=== PATIENT | female | born 1960 | race African-American/Black ===

== ENCOUNTER 2017-06-11 08:24 | Emergency (ER) | payer SELFPAY ==
[~2017-06-11] VITALS: Ht 165.1 cm; Wt 71.7 kg
[2017-06-11 08:31] VITALS: BP 111/63
--- NOTE | 2017-06-11 08:58 | NUR ---
PATIENT PRESENTS TO ED WITH LEFT SHOULDER DULL TYPE PAIN SELF RELIEVING AFTER DRINKING WATER PER PT; THIS AM EPIGASTRIC REGION DULL PAIN DENIES EMESIS/DIARRHEA/SOB/INJURY . PT STATES SHE ATE SPICY FOOD LAST NIGHT AND IS CONTRIBUTING PAIN WITH THE SPICY FOOD. . DENIES V/D; SKIN IS PINK/WARM/DRY; AAOX4 WITH EVEN AND STEADY GAIT; LUNGS CLEAR BL; HR EVEN AND REGULAR; PT DENIES ANY FEVER, CP, SOB, OR COUGH AT THIS TIME; PATIENT STATES PAIN OF 7/10 AT THIS TIME; VSS; PATIENT POSITIONED FOR COMFORT; HOB ELEVATED; BEDRAILS UP X2; BED DOWN. ER MD MADE AWARE OF PT STATUS.
--- NOTE | 2017-06-11 09:00 | NUR ---
X-Ray at bedside.
[2017-06-11 09:13] LABS: BASOPHILS # (AUTO) 0.1 K/uL (0.00-0.22); EOSINOPHILS % (AUTO) 0.1 % (0.0-4.0); HEMATOCRIT 41.9 % (36-48); HEMOGLOBIN 13.4 g/dL (12.0-16.0); LYMPHOCYTES # (AUTO) 0.5 K/uL (2.5-16.5); LYMPHOCYTES % (AUTO) 4.4 % (20.5-51.1); MEAN CORPUSCULAR HEMOGLOBIN 27 pg (27-31); MEAN CORPUSCULAR HGB CONC 32 g/dL (33-37); MEAN CORPUSCULAR VOLUME 84 fL (80-94); MONOCYTES # (AUTO) 0.8 K/uL (0.8-1.0); MONOCYTES % (AUTO) 6.8 % (1.7-9.3); NEUTROPHILS # (AUTO) 10.5 K/uL (1.8-7.7); NEUTROPHILS % (AUTO) 87.7 % (42.2-75.2); PLATELET COUNT (AUTO) 241 K/uL (140-450); RED BLOOD CELL COUNT(AUTO) 4.99 MIL/uL (4.20-5.40); RED CELL DISTRIBUTION WIDTH 12.3 % (11.6-13.7)
[2017-06-11 09:26] LABS: WHITE BLOOD COUNT (AUTO) 11.9 K/uL (4.8-10.8)
[2017-06-11 09:28] LABS: ANION GAP 12.6 (8-16); CARBON DIOXIDE 27.4 mmol/L (21-32); CREATININE 1.1 mg/dL (0.6-1.3)
[2017-06-11 09:32] LABS: PROTHROMBIN TIME 9.3 secs (10.8-13.4)
[2017-06-11 09:34] LABS: ALBUMIN 3.7 g/dL (3.4-5.0); TOTAL BILIRUBIN 0.8 mg/dL (0.0-1.0)
[2017-06-11] MEDS ORDERED: ASPIRIN 81 MG TAB.CHEW PO ONE (09:50)
--- NOTE | 2017-06-11 10:43 | NUR ---
PT UP TO RESTROOM---DENIES ADDITIONAL PAIN---AMBULATORY TO AND FROM RESTROOM WITH STEADY GAIT---NO S/S RESP DISTRESS--- PLACED BY ON MONITOR---CONTINUES TO WAIT FOR DISPO.
[2017-06-11] MEDS ORDERED: KETOROLAC 60 MG/2 ML VIAL IM ONE (10:50)
[2017-06-11 11:08] VITALS: BP 107/76
--- NOTE | 2017-06-11 11:09 | NUR ---
COPY OF X-RAY READ, EKG, LAB RESULTS HANDED TO PT, INSTRUCTED TO F/U WITHIN THIS WEEK WITH PMD Patient discharged with v/s stable. Written and verbal after care instructions given and explained. Patient alert, oriented and verbalized understanding of instructions. Ambulatory with steady gait. All questions addressed prior to discharge. ID band removed. Patient advised to follow up with PMD. Rx of MOTRIN/PRILOSEC given. Patient educated on indication of medication including possible reaction and side effects. Opportunity to ask questions provided and answered.
== END 2017-06-11 11:09 | disposition home or self-care (01) ==
LOC: MED 08:24
DX: R07.89 Other chest pain (principal); M25.512 Pain in left shoulder; K21.9 Gastro-esophageal reflux disease without esophagitis
CPT/HCPCS: 36415; 71010; 80053; 83880; 84484; 85025; 85610; 85730; 93005; 96372; 99285; J1885; Q0092